=== PATIENT | female | born 1940 | race Caucasian/White ===

== ENCOUNTER 2024-01-17 13:48 | Inpatient (IN) | payer MEDICARE, MEDICAID ==
[~2024-01-17] VITALS: Ht 165.1 cm; Wt 42.3 kg
[~2024-01-17 13:48] MED LIST: ALEN35TA52 PO; AMLO5TAB88 PO; FURO20TA4 PO; LEVO75TA7 PO; LOSA25TA26 PO
[2024-01-17] MEDS: DEXTROSE 50% WATER 50ML SYRINGE IV ONE (14:11)
[2024-01-17] MEDS: SODIUM CHLORIDE 0.9% 1,000 ML IV ONE (14:14)
[2024-01-17 14:29] LABS: HEMATOCRIT. 44.1 % (36.0-48.0); HEMOGLOBIN. 13.4 g/dL (12.0-16.0); MEAN CORPUSCULAR HEMOGLOBIN 30.4 pg (28.0-32.0); MEAN CORPUSCULAR HGB CONC 30.3 g/dL (31.0-37.0); MEAN CORPUSCULAR VOLUME 100.2 fL (81.0-99.0); MEAN PLATELET VOLUME 10.2 fl (7.4-10.4); PLATELET 177 x1000/uL (130-400); WHITE BLOOD COUNT 5.4 x1000/uL (4.5-11.0)
[2024-01-17 14:30] LABS: DIFFERENTIAL COMMENT 1
[2024-01-17 14:36] LABS: CHLORIDE 100 mEq/L (98-107); SODIUM 128 mEq/L (136-145)
[2024-01-17 14:37] LABS: CALCIUM 9.5 mg/dL (8.7-10.4); CARBON DIOXIDE 10 mEq/L (21-32)
[2024-01-17 14:42] LABS: GLUCOSE 194 mg/dL (70-105); UREA NITROGEN BLOOD 30 mg/dL (9-23)
[2024-01-17 14:49] LABS: CREATININE 2.1 mg/dL (0.6-1.0); ETHANOL BLOOD < 10 mg/dL (<10)
[2024-01-17 14:54] LABS: TROPONIN I HIGH SENSITIVITY 70 ng/L (3.0-34)
[2024-01-17] MEDS: CALCIUM GLUCONATE 1GM PREMIX 50 ML IV NR (15:13)
[2024-01-17] MEDS: FUROSEMIDE 40MG/4ML VIAL IV SCH (15:13)
[2024-01-17] MEDS ORDERED: CALCIUM GLUCONATE 1GM PREMIX 100 ML IV NR (15:15)
[2024-01-17] MEDS: INSULIN REGULAR (HUMULIN R) 1000UNITS/10ML VIAL IV SCH (15:16)
[2024-01-17] MEDS: DEXTROSE 50% WATER 50ML SYRINGE IV NR (15:16)
[2024-01-17] MEDS: SODIUM BICARBONATE 8.4% 50MEQ/50ML SYR IV SCH (15:17)
[2024-01-17 15:18] VITALS: PULSE 68; RESP 20
[2024-01-17] MEDS: ALBUTEROL (0.083%) 2.5MG/3ML NEB HHN SCH (15:18)
[2024-01-17 15:55] VITALS: PULSE 100; RESP 22
[2024-01-17] MEDS ORDERED: DEXTROSE 50% WATER 50ML SYRINGE IV PRN (16:15)
[2024-01-17] MEDS ORDERED: DOCUSATE SODIUM 100MG CAPSULE PO PRN (16:15)
[2024-01-17] MEDS ORDERED: ACETAMINOPHEN 325MG TABLET PO PRN ×2 (16:15)
[2024-01-17] MEDS ORDERED: IPRATROPIUM/ALBUTEROL 0.5-3(2.5)MG/3ML NEB HHN PRN (16:15)
[2024-01-17] MEDS ORDERED: ONDANSETRON HCL 4MG/2ML INJ IV PRN (16:15)
[2024-01-17] MEDS ORDERED: GUAIFENESIN 200MG/10ML SUGAR FREE UDC PO PRN (16:15)
[2024-01-17 16:20] LABS: PLATELET ESTIMATE NORMAL
[2024-01-17 16:43] VITALS: PULSE 108; RESP 22
[2024-01-17 16:58] LABS: BG BASE EXCESS -18.1 mmol/L (-2.0-3.0); BG CARBOXYHEMOGLOBIN 0.8 % (0.5-1.5); BG DEOXYHEMOGLOBIN 0.6 % (0.0-5.0); BG FRACTION INSPIRED OXYGEN 36; BG HCO3 ACT 7.8 mmol/L (21.0-28.0); BG METHEMOGLOBIN 0.2 % (0.5-1.5); BG OXYGEN SATURATION 99.4 % (94.0-98.0); BG OXYHEMOGLOBIN 98.4 % (94.0-98.0); BG PCO2 20.3 mmHg (32.0-45.0); BG PH 7.201 (7.350-7.450); BG PO2 176.1 mmHg (83.0-108.0); BG SAMPLE SITE RIGHT BRACHIAL; BG TOTAL HEMOGLOBIN 14.1 g/dL (12.0-16.0); BG VENT MODE NASAL CANNULA
[2024-01-17] MEDS ORDERED: HYDRALAZINE 20MG/ML VIAL IV PRN (17:00)
[2024-01-17] MEDS ORDERED: BLOOD SUGAR DIAGNOSTIC STRIP TEST SCH (17:00)
[2024-01-17] MEDS: PIPERACILLIN/TAZO 3.375G/50ML 50 ML IV SCH (17:19)
[2024-01-17] MEDS: SODIUM BICARBONATE 8.4% 50MEQ/50ML SYR IV NR (17:20)
[2024-01-17 17:48] LABS: CHLORIDE 100 mEq/L (98-107); POTASSIUM 5.5 mEq/L (3.5-5.1); SODIUM 130 mEq/L (136-145)
[2024-01-17 17:49] LABS: CALCIUM 9.3 mg/dL (8.7-10.4); CARBON DIOXIDE 10 mEq/L (21-32)
[2024-01-17] MEDS: VANCOMYCIN 1.25GM PMX (XELLIA) 250 ML IV NR (17:49)
[2024-01-17 17:54] LABS: CREATININE 2.5 mg/dL (0.6-1.0); GLUCOSE 286 mg/dL (70-105)
[2024-01-17 17:55] LABS: UREA NITROGEN BLOOD 34 mg/dL (9-23)
[2024-01-17 17:57] LABS: PHOSPHORUS 5.9 mg/dL (2.5-4.9)
[2024-01-17 17:59] LABS: THYROID STIMULATING HORMONE 5.59 uIU/mL (0.55-4.78)
[2024-01-17 18:09] LABS: LACTIC ACID 12.7 mmol/L (0.4-2.0)
[2024-01-17] MEDS: FUROSEMIDE 40MG/4ML VIAL IVP SCH (18:21)
[2024-01-17] MEDS: INSULIN LISPRO 100 UNITS/ML SUBCUT SCH (18:26)
[2024-01-17] MEDS: ENOXAPARIN 60MG/0.6ML SYR SUBCUT NR (18:43)
[2024-01-17 19:34] VITALS: PULSE 114; RESP 20; O2SAT 94
[2024-01-17] MEDS: IPRATROPIUM/ALBUTEROL 0.5-3(2.5)MG/3ML NEB HHN SCH (19:34)
[2024-01-17 20:05] LABS: CLARITY URINE CLEAR (CLEAR); COLOR URINE YELLOW (YELLOW); GLUCOSE URINE NEGATIVE (NEGATIVE); KETONES URINE NEGATIVE (NEGATIVE); LEUKOCYTE ESTERASE URINE 1+ (NEGATIVE); NITRITE URINE NEGATIVE (NEGATIVE); OCCULT BLOOD URINE 1+ (NEGATIVE); PROTEIN URINE 1+ (NEGATIVE); SPECIFIC GRAVITY URINE 1.011 (1.005-1.030)
[2024-01-17 20:12] LABS: *AMPHETAMINES SCREEN URINE NEGATIVE (NEGATIVE); *BARBITURATES SCREEN URINE NEGATIVE (NEGATIVE); *BENZODIAZEPINES SCREEN URINE NEGATIVE (NEGATIVE); *COCAINE SCREEN URINE NEGATIVE (NEGATIVE); CANNABINOID URINE SCREEN NEGATIVE (NEGATIVE); METHADONE URINE SCREEN NEGATIVE (NEGATIVE); OPIATES URINE SCREEN NEGATIVE (NEGATIVE); PHENCYCLIDINE URINE SCREEN NEGATIVE (NEGATIVE)
[2024-01-17 20:13] LABS: ECSTASY MDMA SCREEN URINE NEGATIVE (NEGATIVE)
[2024-01-17 20:17] LABS: INR 1.9; PROTHROMBIN TIME 20.6 sec (9.6-11.0)
[2024-01-17] MEDS: SODIUM BICARBONATE 150 MEQ in DEXTROSE 5% WATER 850 ML IV SCH (20:22)
[2024-01-17 20:26] LABS: BACTERIA URINE TRACE; SQUAMOUS EPITHELIAL CELL URINE 1+ /lpf (RARE/1+)
[2024-01-17] MEDS: FAMOTIDINE 20MG/2ML VIAL IV SCH (23:09)
[2024-01-18 01:25] VITALS: PULSE 95; RESP 20; O2SAT 99
[2024-01-18 05:51] LABS: HEMATOCRIT. 39.9 % (36.0-48.0); HEMOGLOBIN. 12.9 g/dL (12.0-16.0); MEAN CORPUSCULAR HEMOGLOBIN 30.1 pg (28.0-32.0); MEAN CORPUSCULAR HGB CONC 32.3 g/dL (31.0-37.0); MEAN PLATELET VOLUME 10.1 fl (7.4-10.4); PLATELET 150 x1000/uL (130-400); RED BLOOD CELL COUNT 4.29 mill/uL (4.2-5.4); RED CELL DISTRIBUTION WIDTH 15.8 % (11.6-14.6); WHITE BLOOD COUNT 11.8 x1000/uL (4.5-11.0)
[2024-01-18 05:59] LABS: POTASSIUM 4.7 mEq/L (3.5-5.1)
[2024-01-18 06:01] LABS: CALCIUM 9.4 mg/dL (8.7-10.4)
[2024-01-18 06:05] LABS: CREATININE 2.3 mg/dL (0.6-1.0)
[2024-01-18 07:02] LABS: DIFFERENTIAL COMMENT 1
[2024-01-18 07:08] LABS: NUCLEATED RED BLOOD CELLS 1 /100 WBC
[2024-01-18 07:09] LABS: PLATELET ESTIMATE NORMAL
[2024-01-18 07:10] LABS: ANISOCYTOSIS 1+
[2024-01-18 08:24] VITALS: PULSE 117; RESP 22; O2SAT 91
[2024-01-18] MEDS ORDERED: ENOXAPARIN 30MG/0.3ML SYR SUBCUT SCH (09:00)
[2024-01-18 09:23] LABS: T4 FREE 1.73 ng/dL (0.89-1.76)
[2024-01-18 09:44] LABS: BG BASE EXCESS -0.3 mmol/L (-2.0-3.0); BG CARBOXYHEMOGLOBIN 0.9 % (0.5-1.5); BG DEOXYHEMOGLOBIN 2.8 % (0.0-5.0); BG FRACTION INSPIRED OXYGEN 21; BG HCO3 ACT 21.5 mmol/L (21.0-28.0); BG METHEMOGLOBIN 0.3 % (0.5-1.5); BG OXYGEN SATURATION 97.2 % (94.0-98.0); BG PCO2 27.6 mmHg (32.0-45.0); BG PH 7.509 (7.350-7.450); BG PO2 86.7 mmHg (83.0-108.0); BG SAMPLE SITE RIGHT BRACHIAL; BG TOTAL HEMOGLOBIN 13.6 g/dL (12.0-16.0); BG VENT MODE ROOM AIR
[2024-01-18] MEDS: LEVOTHYROXINE SODIUM 75MCG TABLET PO SCH (09:56)
[2024-01-18] MEDS: DIGOXIN 500MCG/2ML AMP IV NR (12:45)
[2024-01-18 15:00] VITALS: BP 96/52; PULSE 74; RESP 16; TEMP 36.3918; O2SAT 98
[2024-01-18 15:18] LABS: TROPONIN I HIGH SENSITIVITY 223 ng/L (3.0-34)
[2024-01-18 17:05] VITALS: BP 106/76; PULSE 97; RESP 17; TEMP 37.11408; O2SAT 98
[2024-01-18] MEDS ORDERED: ENOXAPARIN 60MG/0.6ML SYR SUBCUT SCH (18:00)
[2024-01-18] MEDS: DILTIAZEM HCL 30MG TABLET PO SCH (18:11)
[2024-01-18] MEDS: ENOXAPARIN 40MG/0.4ML SYR SUBCUT SCH (18:11)
[2024-01-18 20:10] VITALS: BP 116/65; PULSE 87; RESP 16; TEMP 36.22512; O2SAT 99
[2024-01-18] MEDS ORDERED: PIPERACILLIN/TAZO 3.375G/50ML 50 ML IV SCH (21:00)
[2024-01-18] MEDS: PIPERACILLIN/TAZO 3.375G/100ML 100 ML IV SCH (22:01)
[2024-01-18 22:47] LABS: TROPONIN I HIGH SENSITIVITY 238 ng/L (3.0-34)
[2024-01-19] VITALS (9 sets, daily range): BP systolic 101–146; BP diastolic 49–106; PULSE 61–89; RESP 16–20; TEMP 36.22512–36.6696; O2SAT 96–100
[2024-01-19 08:33] LABS: CHLORIDE 97 mEq/L (98-107); SODIUM 139 mEq/L (136-145)
[2024-01-19 08:34] LABS: CALCIUM 8.2 mg/dL (8.7-10.4); CARBON DIOXIDE 30 mEq/L (21-32)
[2024-01-19 08:37] LABS: HEMOGLOBIN. 12.8 g/dL (12.0-16.0); MEAN CORPUSCULAR HEMOGLOBIN 30.1 pg (28.0-32.0); MEAN CORPUSCULAR HGB CONC 32.1 g/dL (31.0-37.0); MEAN CORPUSCULAR VOLUME 93.6 fL (81.0-99.0); MEAN PLATELET VOLUME 10.4 fl (7.4-10.4); PLATELET 119 x1000/uL (130-400); RED BLOOD CELL COUNT 4.27 mill/uL (4.2-5.4); RED CELL DISTRIBUTION WIDTH 15.8 % (11.6-14.6); WHITE BLOOD COUNT 7.5 x1000/uL (4.5-11.0)
[2024-01-19 08:39] LABS: CREATININE 1.8 mg/dL (0.6-1.0); GLUCOSE 81 mg/dL (70-105); UREA NITROGEN BLOOD 42 mg/dL (9-23)
[2024-01-19 08:41] LABS: PHOSPHORUS 3.7 mg/dL (2.5-4.9)
[2024-01-19 08:45] LABS: DIFFERENTIAL COMMENT 1
[2024-01-19] MEDS: FUROSEMIDE 20MG/2ML VIAL IVP SCH (08:46)
[2024-01-19 09:35] LABS: TROPONIN I HIGH SENSITIVITY 224 ng/L (3.0-34)
[2024-01-19] MEDS: DEXT 5%/0.9% NACL 1,000 ML IV SCH (12:54)
[2024-01-19] MEDS: KCL 20MEQ/100ML PREMIX 100 ML IV SCH (13:25)
[2024-01-19 16:16] LABS: ANISOCYTOSIS 1+; PLATELET ESTIMATE NORMAL
[2024-01-19] MEDS: CEFTRIAXONE 1GM/50ML 100 ML IV SCH (16:16)
[2024-01-20] VITALS (9 sets, daily range): BP systolic 99–151; BP diastolic 54–71; PULSE 67–107; RESP 16–19; TEMP 36.28068–36.78072; O2SAT 91–100
[2024-01-20 08:45] LABS: EOSINOPHILS % 0.3 % (0.0-5.0); HEMATOCRIT. 43.4 % (36.0-48.0); MEAN CORPUSCULAR HEMOGLOBIN 30.3 pg (28.0-32.0); MEAN CORPUSCULAR HGB CONC 32.2 g/dL (31.0-37.0); MEAN CORPUSCULAR VOLUME 94.3 fL (81.0-99.0); MEAN PLATELET VOLUME 9.5 fl (7.4-10.4); MONOCYTES % 6.6 % (2.0-8.0); NEUTROPHILS % 84.1 % (40.0-76.0); PLATELET 109 x1000/uL (130-400); RED BLOOD CELL COUNT 4.61 mill/uL (4.2-5.4); WHITE BLOOD COUNT 7.4 x1000/uL (4.5-11.0)
[2024-01-20 08:51] LABS: CREATININE 1.2 mg/dL (0.6-1.0)
[2024-01-20 09:05] LABS: POTASSIUM 2.5 mEq/L (3.5-5.1)
[2024-01-20] MEDS ORDERED: KCL 20MEQ/100ML PREMIX 100 ML IV SCH (11:00)
[2024-01-20 11:56] LABS: PHOSPHORUS 2.3 mg/dL (2.5-4.9)
[2024-01-20] MEDS: POTASSIUM CHLORIDE 20MEQ TABLET SR PO NR (14:00)
[2024-01-20] MEDS ORDERED: MAGNESIUM 2 G PREMIX 50 ML IV NR (18:00)
[2024-01-20] MEDS ORDERED: POTASSIUM PHOSPHATE 20 MMOL in DEXT 5% WATER 250 ML IV NR (18:00)
[2024-01-20] MEDS: POTASSIUM CHLORIDE 20MEQ/PACKET PO NR (18:48)
[2024-01-20] MEDS: MAGNESIUM GLUCONATE 500MG TABLET PO NR (18:48)
[2024-01-21] VITALS (8 sets, daily range): BP systolic 116–137; BP diastolic 63–87; PULSE 62–106; RESP 18–20; TEMP 36.33624–36.78072; O2SAT 96–99
[2024-01-21 07:12] LABS: CARBON DIOXIDE 29 mEq/L (21-32); CHLORIDE 98 mEq/L (98-107); POTASSIUM 3.7 mEq/L (3.5-5.1); SODIUM 136 mEq/L (136-145)
[2024-01-21 07:14] LABS: CALCIUM 8.1 mg/dL (8.7-10.4)
[2024-01-21 07:18] LABS: CREATININE 0.9 mg/dL (0.6-1.0); GLUCOSE 132 mg/dL (70-105)
[2024-01-21 07:19] LABS: UREA NITROGEN BLOOD 17 mg/dL (9-23)
[2024-01-21 07:21] LABS: PHOSPHORUS 1.3 mg/dL (2.5-4.9)
[2024-01-21 07:23] LABS: BASOPHILS % 0.2 % (0.0-2.0); EOSINOPHILS % 0.3 % (0.0-5.0); HEMATOCRIT. 40.2 % (36.0-48.0); HEMOGLOBIN. 13.1 g/dL (12.0-16.0); LYMPHOCYTES % 7.8 % (20.0-50.0); MEAN CORPUSCULAR HGB CONC 32.7 g/dL (31.0-37.0); MEAN CORPUSCULAR VOLUME 91.7 fL (81.0-99.0); MEAN PLATELET VOLUME 9.6 fl (7.4-10.4); MONOCYTES % 7.1 % (2.0-8.0); NEUTROPHILS % 84.6 % (40.0-76.0); PLATELET 130 x1000/uL (130-400); RED BLOOD CELL COUNT 4.38 mill/uL (4.2-5.4); RED CELL DISTRIBUTION WIDTH 15.8 % (11.6-14.6); WHITE BLOOD COUNT 10.2 x1000/uL (4.5-11.0)
[2024-01-21] MEDS: MAGNESIUM OXIDE 400MG TABLET PO SCH (12:39)
[2024-01-21] MEDS ORDERED: DILT-26 MT (14:22)
[2024-01-21] MEDS ORDERED: MAGN400C PO (14:24)
[2024-01-21] MEDS: POTASSIUM-SODIUM PHOSPHATE POWDER PACKET PO NR (15:19)
[2024-01-22] VITALS (8 sets, daily range): BP systolic 125–142; BP diastolic 58–88; PULSE 76–115; RESP 18–20; TEMP 36.44736–36.78072; O2SAT 93–98
== END 2024-01-22 19:18 | disposition home or self-care (01) | DRG 871 ==
LOC: ER 13:54 → EDBEDREQ 14:23 → 5WST 14:59 → EDBEDREQ 15:03 → 5WST 01-18 14:37 → 7EST 01-19 20:42
PROVIDERS: ADMIT Hospitalist; ATTEND Hospitalist
DX: A41.9 Sepsis, unspecified organism (principal); G92.8 Other toxic encephalopathy; I21.A1 Myocardial infarction type 2; J96.01 Acute respiratory failure with hypoxia; I50.23 Acute on chronic systolic (congestive) heart failure; E87.1 Hypo-osmolality and hyponatremia; E87.20 Acidosis, unspecified; E46 Unspecified protein-calorie malnutrition; N39.0 Urinary tract infection, site not specified; Z68.1 Body mass index [BMI] 19.9 or less, adult; N17.9 Acute kidney failure, unspecified; D72.821 Monocytosis (symptomatic); D75.89 Other specified diseases of blood and blood-forming organs; E03.9 Hypothyroidism, unspecified; E11.21 Type 2 diabetes mellitus with diabetic nephropathy; E11.65 Type 2 diabetes mellitus with hyperglycemia; L89.159 Pressure ulcer of sacral region, unspecified stage; M81.0 Age-related osteoporosis without current pathological fracture; R62.7 Adult failure to thrive; N18.9 Chronic kidney disease, unspecified; I11.0 Hypertensive heart disease with heart failure; D69.6 Thrombocytopenia, unspecified; E83.39 Other disorders of phosphorus metabolism; E83.42 Hypomagnesemia; E87.6 Hypokalemia; I48.0 Paroxysmal atrial fibrillation; E78.5 Hyperlipidemia, unspecified; Z79.83 Long term (current) use of bisphosphonates; Z95.810 Presence of automatic (implantable) cardiac defibrillator; Z95.828 Presence of other vascular implants and grafts; Z98.1 Arthrodesis status
CPT/HCPCS: 36415; 36600; 71045; 76770; 80048; 80061; 80202; 80305; 80320; 81003; 82375; 82805; 82962; 83036; 83605; 83735; 83880; 83930; 83935; 84100; 84145; 84439; 84443; 84484; 85025; 85379; 87106; 93005; 93970; 94070; 94640; 94664; 97161; 97166; 97535; 98960; 99291; A6261; C1893; J0610; J0696; J1160; J1650; J1815; J1940; J2543; J3370; J3475; J3480; J3490; J7030; J7042; J7060; J7070; G0480